=== PATIENT | male | born 1995 | race Caucasian/White ===

== ENCOUNTER → 2018-11-17 | Outpatient (CLI) | payer OTHER | LOC: MHCPAIN 09:23 | DX: G89.29 Other chronic pain (principal); M79.2 Neuralgia and neuritis, unspecified; R10.32 Left lower quadrant pain | CPT/HCPCS: G0463 ==

== ENCOUNTER → 2019-01-03 | Outpatient (CLI) | payer OTHER | LOC: MHCPAIN 09:19 | DX: G89.29 Other chronic pain (principal); M79.2 Neuralgia and neuritis, unspecified | CPT/HCPCS: G0463 ==

== ENCOUNTER → 2019-10-26 | Outpatient (CLI) | payer OTHER | LOC: COL.RAD 13:00 | DX: G43.009 Migraine without aura, not intractable, without status migrainosus (principal); R00.2 Palpitations ==